=== PATIENT | female | born 1945 | race Caucasian/White ===

== ENCOUNTER 2016-08-26 00:26 | Emergency (ER) | payer OTHER, BC ==
[~2016-08-26] VITALS: Ht 162.6 cm; Wt 77.3 kg
[~2016-08-26 00:26] MED LIST: ATENOLOL25 MG PO; CRESTOR10 MG PO; MELOXICAM15 MG PO; NORVASC5 MG PO; PREDNISONE20 MG PO; PROAIR HFA8.5 GM IH; PROMETHAZINE V240 ML PO
[2016-08-26] MEDS ORDERED: KLOR-CON M2020 MEQ PO (01:26)
[2016-08-26] MEDS ORDERED: METFORMIN HCL500 M4 PO (01:26)
[2016-08-26] MEDS ORDERED: POTASSIUM GLUCONATE PO (01:26)
[2016-08-26] MEDS ORDERED: TESSALON PERLE100 MG PO (01:26)
[2016-08-26] MEDS ORDERED: B COMPLETE1 EACH PO (01:27)
[2016-08-26] MEDS ORDERED: DIOVAN HCT 11 TABLE1 PO (01:27)
[2016-08-26] MEDS ORDERED: ZYRTEC10 M3 PO (01:27)
[2016-08-26] MEDS ORDERED: LO-DOSE ASPIRIN81 M2 PO (01:27)
[2016-08-26] MEDS ORDERED: CRESTOR10 MG PO (01:27)
[2016-08-26 01:42] LABS: HEMATOCRIT 40.7 % (36.0-46.0); MCH 30.3 PG (29.0-34.0); MCHC 34.2 G/DL (30.0-36.0); MCV 88.7 FL (83-99); MEAN PLAT.VOLUME 9.9 uM^3 (9.5-12.4); PLATELET COUNT 249 K/uL (156-360); RBC DIS.WIDTH-SD 38.5 % (39-53); RED BLOOD COUNT 4.59 M/uL (3.80-5.20)
[2016-08-26 01:53] LABS: CHLORIDE 104 mEq/L (99-109); POTASSIUM 3.3 mEq/L (3.7-5.4); SODIUM 143 mEq/L (136-147)
[2016-08-26 01:55] LABS: GLUCOSE 145 mg/dL (70-99)
[2016-08-26 01:57] LABS: ANION GAP 11 MEQ/L (2-14)
[2016-08-26 01:59] LABS: GFR ESTIMATE (CALCULATED) > 59 mL/min/
[2016-08-26 02:00] LABS: UREA NITROGEN (BUN) 26 mg/dL (9-23)
[2016-08-26 02:07] LABS: TROP-I INTERPRETATION NEGATIVE; TROPONIN-I < 0.01 ng/mL (0.0-0.30)
[2016-08-26 02:41] VITALS: BP 110/73
[2016-09-02] MEDS ORDERED: CENTRUM WOMEN1 EACH PO (16:19)
== END 2016-08-26 02:51 | disposition home or self-care (01) ==
LOC: EME 00:26
PROVIDERS: Emergency Medicine
DX: R00.2 Palpitations (principal); E87.6 Hypokalemia; I10 Essential (primary) hypertension; Z85.3 Personal history of malignant neoplasm of breast; Z90.11 Acquired absence of right breast and nipple
CPT/HCPCS: 71020; 80048; 83735; 84443; 84484; 85027; 93005; 99281; 99285

== ENCOUNTER 2017-04-01 09:37 | Observation (INO) | payer OTHER, BC ==
[~2017-04-01] VITALS: Ht 160 cm; Wt 75.7 kg
[~2017-04-01 09:37] MED LIST changes: +B COMPLETE1 EACH PO; +CENTRUM WOMEN1 EACH PO; +KLOR-CON M2020 MEQ PO; +LO-DOSE ASPIRIN81 M2 PO; +METFORMIN HCL500 M4 PO; +MICRO-K10 ME2 PO; +POTASSIUM GLUCONATE PO; +PRILOSEC10 MG PO; +TESSALON PERLE100 MG PO; +VALSARTAN-HCTZ1 EAC2 PO; +ZYRTEC10 M3 PO
[2017-04-01 10:54] LABS: MCH 30.6 PG (29.0-34.0); MCHC 33.2 G/DL (30.0-36.0); MCV 92.3 FL (83-99); MEAN PLAT.VOLUME 10.3 uM^3 (9.5-12.4); PLATELET COUNT 221 K/uL (156-360); RBC DIS.WIDTH-CV 12.6 % (11.8-14.6); RBC DIS.WIDTH-SD 42.8 % (39-53); RED BLOOD COUNT 4.44 M/uL (3.80-5.20); WHITE BLOOD COUNT 6.2 K/uL (4.1-10.2)
[2017-04-01 11:04] LABS: CHLORIDE 109 mEq/L (99-109); POTASSIUM 3.8 mEq/L (3.7-5.4); SODIUM 143 mEq/L (136-147)
[2017-04-01 11:05] LABS: GLUCOSE 155 mg/dL (70-99)
[2017-04-01 11:07] LABS: ANION GAP 10 MEQ/L (2-14)
[2017-04-01 11:09] LABS: GFR ESTIMATE (CALCULATED) > 59 mL/min/
[2017-04-01 11:10] LABS: UREA NITROGEN (BUN) 23 mg/dL (9-23)
[2017-04-01 11:16] LABS: TROP-I INTERPRETATION NEGATIVE; TROPONIN-I < 0.01 ng/mL (0.0-0.30)
[2017-04-01 11:55] LABS: MAGNESIUM 2.3 mg/dL (1.3-2.7)
[2017-04-01] MEDS ORDERED: MOVE FREE JOIN1 EACH PO (14:16)
[2017-04-01] MEDS ORDERED: ZANTAC150 MG PO (14:16)
[2017-04-01 14:58] VITALS: BP 126/65
[2017-04-01 16:24] LABS: TROP-I INTERPRETATION NEGATIVE; TROPONIN-I < 0.01 ng/mL (0.0-0.30)
[2017-04-01 20:00] VITALS: BP 118/71
[2017-04-01 22:01] LABS: POINT-OF-CARE METER ID UU13113831
[2017-04-01 22:07] LABS: TROP-I INTERPRETATION NEGATIVE; TROPONIN-I < 0.01 ng/mL (0.0-0.30)
[2017-04-02 00:08] VITALS: BP 112/63
[2017-04-02 03:55] VITALS: BP 124/64
[2017-04-02 08:15] VITALS: BP 125/67
[2017-04-02 08:15] LABS: POINT-OF-CARE METER ID UU13113700
== END 2017-04-02 12:40 | disposition home or self-care (01) ==
LOC: EME 09:37 → EDOF 13:35 → ENRESERV 13:36 → 5WEST 14:41 → ENPENDDIS 04-02 → 5WEST 04-02 12:40
PROVIDERS: Internal Medicine
DX: R00.2 Palpitations (principal); R07.89 Other chest pain; I10 Essential (primary) hypertension; R73.03 Prediabetes; E78.5 Hyperlipidemia, unspecified; E04.1 Nontoxic single thyroid nodule; Z90.49 Acquired absence of other specified parts of digestive tract; Z88.0 Allergy status to penicillin; Z88.8 Allergy status to other drugs, medicaments and biological substances; Z79.82 Long term (current) use of aspirin; Z79.84 Long term (current) use of oral hypoglycemic drugs; Z85.3 Personal history of malignant neoplasm of breast; Z90.11 Acquired absence of right breast and nipple
CPT/HCPCS: 71020; 80048; 82948; 83735; 84443; 84484; 85027; 85379; 93005; 99281; 99285; G0378